=== PATIENT | female | born 1990 | race Asian ===

== ENCOUNTER 2017-09-08 10:54 | Outpatient (CLI) | payer OTHER | END 2017-09-08 10:55 | disposition home or self-care (01) | LOC: SC 10:54 | PROVIDERS: ATTEND Internal Medicine Pulmonary Disease | DX: G47.10 Hypersomnia, unspecified (principal); G47.8 Other sleep disorders; R06.83 Snoring | CPT/HCPCS: 99203; 99212 ==

== ENCOUNTER 2017-12-03 19:27 | Outpatient (CLI) | payer OTHER | END 2017-12-03 19:28 | disposition home or self-care (01) | LOC: SC 19:27 | PROVIDERS: ATTEND Internal Medicine Pulmonary Disease | DX: G47.10 Hypersomnia, unspecified (principal); R06.83 Snoring | CPT/HCPCS: 95810 ==

== ENCOUNTER 2017-12-04 06:11 | Outpatient (CLI) | payer OTHER | END 2017-12-04 06:12 | disposition home or self-care (01) | LOC: SC 06:11 | PROVIDERS: ATTEND Internal Medicine Pulmonary Disease | DX: G47.12 Idiopathic hypersomnia without long sleep time (principal) | CPT/HCPCS: 95805 ==

== ENCOUNTER 2017-12-04 08:00 | Outpatient (CLI) | payer OTHER ==
[2017-12-04 08:09] LABS: MUDS CUTOFF CONCENTRATIONS CUTOFF CONC BELOW:
[2017-12-04 13:17] LABS: AMPHETAMINE SCREEN,URINE NEGATIVE (NEGATIVE); BENZODIAZEPINES SCREEN, URINE NEGATIVE (NEGATIVE); COCAINE SCREEN URINE NEGATIVE (NEGATIVE); METHADONE SCREEN, URINE NEGATIVE (NEGATIVE); METHAMPHETAMINES SCREEN, URINE NEGATIVE (NEGATIVE); OPIATE SCREEN, URINE NEGATIVE (NEGATIVE); OXYCODONE SCREEN, URINE NEGATIVE (NEGATIVE); PROPOXYPHENE SCREEN, URINE NEGATIVE (NEGATIVE); TRICYCLIC ANTIDEPRESSANT,URINE NEGATIVE (NEGATIVE)
== END 2017-12-04 08:01 | disposition home or self-care (01) ==
LOC: LAB.R 08:00
PROVIDERS: ATTEND Internal Medicine Pulmonary Disease
DX: G47.10 Hypersomnia, unspecified (principal)
CPT/HCPCS: 80306

== ENCOUNTER 2018-01-12 14:09 | Outpatient (CLI) | payer OTHER | END 2018-01-12 14:10 | disposition home or self-care (01) | LOC: SC 14:09 | PROVIDERS: ATTEND Internal Medicine Pulmonary Disease | DX: G47.11 Idiopathic hypersomnia with long sleep time (principal) | CPT/HCPCS: 99212; 99213 ==

== ENCOUNTER 2018-02-10 15:29 | Outpatient (CLI) | payer OTHER | END 2018-02-10 15:30 | disposition home or self-care (01) | LOC: SC 15:29 | PROVIDERS: ATTEND Internal Medicine Pulmonary Disease | DX: G47.11 Idiopathic hypersomnia with long sleep time (principal) | CPT/HCPCS: 99212; 99213 ==

== ENCOUNTER 2018-12-11 14:38 | Emergency (ER) | payer OTHER ==
--- NOTE | 2018-12-11 15:15 | ED Physician Documentation ---
PD HPI SKIN - Stated complaint Stated Complaint: RASH - Chief complaint Chief Complaint: General - History obtained from History obtained from: Patient - History of Present Illness Timing - onset: How many months ago (few) Timing - duration: Months (few) Timing - details: Gradual onset, Intermittant (she says it will improve with skin lotion and time, and seems to go away, though with closer questioning it may be some residual and not completely clear skin. Then comes back. Has just used skin lotions, without other medicated creams.) Location: RUE (main lesion is right hand, but has small one on left as well.), LUE Quality / character: Painful, Raised, Swelling. No: Vesicular Associated symptoms: No: Fever, Myalgias, N/V/D Review of Systems Neurologic: denies: Focal weakness, Numbness PD PAST MEDICAL HISTORY - Past Medical History Past Medical History: No - Past Surgical History Past Surgical History: No - Present Medications Home Medications: Ambulatory Orders Medication Instructions Recorded Confirmed Terbinafine HCl [Terbinafine] 1 applic TP BID #15 cream..g. 12/11/18 Triamcinolone 0.1% Cream [Kenalog 1 applic TOP BID #15 g 12/11/18 0.1% Cream] - Allergies Allergies/Adverse Reactions: Allergies Allergy/AdvReac Type Severity Reaction Status Date / Time No Known Drug Allergies Allergy Verified 12/11/18 14:44 - Social History Does the pt smoke?: No Smoking Status: Never smoker Does the pt drink ETOH?: Yes Does the pt have substance abuse?: No PD ED PE NORMAL - Vitals Vital signs reviewed: Yes - General General: Alert and oriented X 3, No acute distress, Well developed/nourished - Derm Derm: Normal color, Warm and dry, Other (left hand with small area of raised bumps, hyperkeratotic, without vesicles. Demarcated area of it about 1 cm. Right had with rounded area of rash about 3-4 cm, with demarceated raised hyperkeratotic edges. Central with some redness but not exudate nor purulence. ) Results - Vitals Vitals: Oxygen O2 Source Room air PD MEDICAL DECISION MAKING - ED course Complexity details: considered differential (rounded rash with elevated edges and clear demarcation. Consider tinea though would not be the come and go that she describes. More likely psoriatic. ), d/w patient Departure - Departure Disposition: 01 Home, Self Care Clinical Impression: Rash of hands Condition: Stable Record reviewed to determine appropriate education?: Yes Instructions: ED Ringworm Infec Fungal, ED Psoriasis Follow-Up: LISA ARMANDO MD [Primary Care Provider] - [facility] [Provider Group] Prescriptions: Terbinafine HCl [Terbinafine] 1 applic TP BID #15 cream..g. Triamcinolone 0.1% Cream [Kenalog 0.1% Cream] 1 applic TOP BID #15 g Comments: I would use both the terbinafine antifungal as well as the triamcinolone steroid creams twice daily after cleansing the rash area with soap and water. You can use skin lotion over it afterward. Use both for a week or so and see if this looks completely cleared. At that point if it recurs I would try just the triamcinolone steroid early on until it clears. He can follow-up with the pharmacy associate. Call to make an appointment. At that point, if you have a small amount of the rash, leave it untreated before leading up to the appointment time so that they have something visible to look at. Discharge Date/Time: 12/11/18 16:17
[2018-12-11 16:17] VITALS: BP 110/66
== END 2018-12-11 16:17 | disposition home or self-care (01) ==
LOC: ED 14:38
DX: R21 Rash and other nonspecific skin eruption (principal)
CPT/HCPCS: 99283

== ENCOUNTER 2019-04-23 01:42 | Emergency (ER) | payer OTHER ==
--- NOTE | 2019-04-23 02:00 | ED Physician Documentation ---
PD HPI FEMALE - Stated complaint Stated Complaint: FEM - Chief complaint Chief Complaint: Abd Pain - History obtained from History obtained from: Patient - History of Present Illness Timing - onset: Yesterday Timing - details: Gradual onset, Waxing and waning Pain level max: 5 Associated symptoms: Pelvic pain (suprapubic), Dysuria, Urinary frequency. No: Fever, Vaginal pain, Vaginal bleeding, Vaginal discharge Contributing factors: No: Similar symptoms before: Has not had sx before Recently seen: Not recently seen Review of Systems Constitutional: denies: Fever GI: denies: Abdominal Pain, Nausea, Vomiting : reports: Dysuria, Frequency PD PAST MEDICAL HISTORY - Past Medical History Past Medical History: Yes Psych: Depression, Anxiety - Past Surgical History Past Surgical History: No - Present Medications Home Medications: Ambulatory Orders Medication Instructions Recorded Confirmed FLUoxetine [PROzac] 10 mg PO DAILY 04/23/19 04/23/19 Nitrofurantoin Monohyd/M-Cryst 100 mg PO BID #10 capsule 04/23/19 [Macrobid 100 mg Capsule] Phenazopyridine HCl [Pyridium] 200 mg PO TID PRN #6 tablet 04/23/19 - Allergies Allergies/Adverse Reactions: Allergies Allergy/AdvReac Type Severity Reaction Status Date / Time No Known Drug Allergies Allergy Verified 04/23/19 01:52 - Social History Does the pt smoke?: No Smoking Status: Never smoker Does the pt drink ETOH?: Yes Does the pt have substance abuse?: No - Immunizations Immunizations are current?: Yes PD ED PE NORMAL - Vitals Vital signs reviewed: Yes - General General: Alert and oriented X 3, No acute distress, Well developed/nourished - Abdomen Abdomen: Soft, Non tender - Back Back: No CVA TTP Results - Vitals Vitals: Vital Signs - 24 hr 04/23/19 01:45 Temperature 36.6 C Heart Rate 71 Respiratory 16 Rate Blood Pressure 101/75 O2 Saturation 98 Oxygen O2 Source Room air - Labs Labs: Laboratory Tests 04/23/19 04/23/19 01:55 01:55 Urine Color YELLOW Urine Clarity HAZY Urine pH 7.5 Ur Specific [place] 1.015 1.015 Urine Protein TRACE Urine Glucose (UA) NEGATIVE Urine Ketones NEGATIVE Urine Occult Blood MODERATE H Urine Nitrite NEGATIVE Urine Bilirubin NEGATIVE Urine Urobilinogen 0.2 (NORMAL) Ur Leukocyte Esterase TRACE H Urine RBC TNTC H Urine WBC 6-10 H Ur Squamous Epith Cells FEW Squamous Urine Bacteria Rare Ur Microscopic Review INDICATED Urine Culture Comments INDICATED Urine HCG, Qual NEGATIVE PD MEDICAL DECISION MAKING - ED course Complexity details: reviewed results, considered differential, d/w patient Departure - Departure Disposition: 01 Home, Self Care Clinical Impression: Cystitis Condition: Good Instructions: ED UTI Cystitis Female Follow-Up: LISA ARMANDO MD [Primary Care Provider] - Prescriptions: Nitrofurantoin Monohyd/M-Cryst [Macrobid 100 mg Capsule] 100 mg PO BID #10 capsule Phenazopyridine HCl [Pyridium] 200 mg PO TID PRN #6 tablet PRN Reason: dysuria
[2019-04-23 02:03] LABS: BILIRUBIN,URINE NEGATIVE (NEGATIVE); CLARITY,URINE HAZY (CLEAR); GLUCOSE, URINE (UA) NEGATIVE (NEGATIVE); KETONES,URINE (UA) NEGATIVE (NEGATIVE); LEUKOCYTE ESTERASE, URINE TRACE (NEGATIVE); NITRITE,URINE NEGATIVE (NEGATIVE); OCCULT BLOOD,URINE MODERATE (NEGATIVE); PH,URINE 7.5 PH (5.0-7.5); PROTEIN,URINE TRACE mg/dL (NEGATIVE); UROBILINOGEN,URINE 0.2 (NORMAL) E.U./dL (NORMAL)
[2019-04-23 02:05] LABS: HCG UR QUAL NEGATIVE
[2019-04-23 02:09] LABS: BACTERIA,URINE Rare /HPF (None Seen); RBC,URINE TNTC /HPF (0-5); SQUAMOUS EPITHELIAL CELL,UR FEW Squamous (<= Few)
[2019-04-23] MEDS ORDERED: NITROFURANTOIN MACRO 100 MG CAPSULE PO STA (02:31)
[2019-04-23] MEDS ORDERED: PHENAZOPYRIDINE 100 MG TABLET PO STA (02:31)
[2019-04-23 02:37] VITALS: BP 115/78
== END 2019-04-23 02:42 | disposition home or self-care (01) ==
LOC: ED 01:42
DX: N30.90 Cystitis, unspecified without hematuria (principal)
CPT/HCPCS: 81001; 81025; 87077; 87086; 87181; 99283; A9270; 81003